=== PATIENT | male | born 1975 | race Caucasian/White ===

== ENCOUNTER 2021-11-20 00:32 | Emergency (ER) | payer SELFPAY ==
[~2021-11-20] VITALS: Ht 172.7 cm; Wt 92.7 kg
[2021-11-20] MEDS ORDERED: IBUPROFEN 600 MG TABLET PO ONE (01:00)
[2021-11-20] MEDS ORDERED: CEPHALEXIN MONOHYDRATE 500 MG CAPSULE PO ONE (01:00)
[2021-11-20 01:41] VITALS: BP 139/88
== END 2021-11-20 02:03 | disposition home or self-care (01) ==
LOC: EMS 00:34
DX: L03.116 Cellulitis of left lower limb (principal)
CPT/HCPCS: 99283

== ENCOUNTER 2022-03-08 00:57 | Inpatient (IN) | payer MEDICAID ==
[2022-03-08] VITALS (9 sets, daily range): BP systolic 98–110; BP diastolic 57–73
[~2022-03-08] VITALS: Ht 172.7 cm; Wt 79.0 kg
[2022-03-08] MEDS ORDERED: ACETAMINOPHEN 500 MG TABLET PO ONE (01:15)
[2022-03-08] MEDS ORDERED: SODIUM CHLORIDE 0.9% 1,000 ML IV ONE (01:15)
[2022-03-08 01:36] LABS: BASOPHILS % (AUTO) 0.4 % (0.0-2.0); HEMATOCRIT 44.8 % (41-53); HEMOGLOBIN 15.5 g/dL (13.5-17.5); LYMPHOCYTES # (AUTO) 2.4 K/uL (1.0-4.8); LYMPHOCYTES % (AUTO) 22.1 % (22.0-44.0); MEAN CORPUSCULAR HEMOGLOBIN 32.5 pg (26.0-34.0); MEAN CORPUSCULAR HGB CONC 34.6 G/dL (31.0-37.0); MEAN CORPUSCULAR VOLUME 94 fL (80-100); MONOCYTES # (AUTO) 0.6 K/uL (0.1-1.0); MONOCYTES % (AUTO) 5.8 % (2.0-9.0); NEUTROPHILS # (AUTO) 7.5 K/uL (1.8-7.7); NEUTROPHILS % (AUTO) 70.7 % (40.0-70.0); PLATELET COUNT (AUTO) 393 K/uL (150-450); RED BLOOD CELL COUNT(AUTO) 4.78 MIL/uL (4.50-5.90); RED CELL DISTRIBUTION WIDTH 13.3 % (11.5-14.5)
[2022-03-08 01:45] LABS: ANION GAP 9 mmol/L (8-16); CALCIUM, TOTAL 8.8 mg/dL (8.8-10.5); CARBON DIOXIDE 31 mmol/L (22-29); CHLORIDE 102 mmol/L (98-107); CREATININE 0.62 mg/dL (0.60-1.30); GLUCOSE,RANDOM 103 mg/dL (70-110); POTASSIUM 3.4 mmol/L (3.5-5.1); SODIUM SERUM 142 mmol/L (136-145); UREA NITROGEN, BLOOD 8 mg/dL (7-18)
[2022-03-08 01:47] LABS: GLOMERULAR FILTR. RATE CALC > 60 mL/min (>60)
[2022-03-08 01:50] LABS: PROTHROMBIN TIME 10.4 SEC (9.4-11.6)
[2022-03-08 01:50] LABS: ABG CARBOXYHEMOGLOBIN 3.6 % (0.0-1.5); ABG HCO3 24.3 mmol/L (22.0-26.0); ABG METHEMOGLOBIN 0.3 % (0.0-1.5); ABG OXYGEN CONTENT 20.5 mL/dL (15.0-23.0); ABG OXYGEN SATURATION 96.6 % (95.0-98.0); ABG OXYHEMOGLOBIN 92.8 % (94.0-100.0); ABG PCO2 42 mmHg (35-45); ABG PH 7.388 (7.35-7.450); ABG TOTAL HEMOGLOBIN 15.7 G/dL (12.0-18.0); PO2, ARTERIAL BG 81.7 mmHg (88.0-96.0); SOURCE, BLOOD GAS ARTERIAL; TEMPERATURE, FAHRENHEIT, BG 98.6 FAHREN (96.0-98.6)
[2022-03-08 01:51] LABS: SITE, BLOOD GAS RT RADIAL
[2022-03-08 02:01] LABS: B-TYPE NATRIURETIC PEPTIDE 13 pg/mL (0-100)
[2022-03-08 02:02] LABS: COVID AG,FIA SOURCE NASOPHARYNGEAL
[2022-03-08 02:05] LABS: ALANINE AMINOTRANSFERASE 46 U/L (12-78); ALBUMIN 3.5 g/dL (3.4-5.0); ALKALINE PHOSPHATASE 74 U/L (46-116); ASPARTATE AMINOTRANSFERASE 29 U/L (15-37); BILIRUBIN,TOTAL 0.2 mg/dL (0.1-1.0); CREATINE KINASE, TOTAL ONLY 94 U/L (39-308); TOTAL PROTEIN, SERUM 7.2 g/dL (6.4-8.2)
[2022-03-08 02:17] LABS: ACETONE,BLOOD NEGATIVE (NEGATIVE)
[2022-03-08 02:54] LABS: APPEARANCE,URINE CLEAR (CLEAR); BILIRUBIN,URINE NEGATIVE (NEGATIVE); GLUCOSE, URINE (UA) NEGATIVE (NEGATIVE); KETONES,URINE NEGATIVE (NEGATIVE); LEUKOCYTE ESTERASE ,URINE NEGATIVE (NEGATIVE); NITRATE,URINE NEGATIVE (NEGATIVE); OCCULT BLOOD,URINE NEGATIVE (NEGATIVE); PROTEIN,URINE NEGATIVE (NEGATIVE); SPECIFIC GRAVITIY, URINE 1.009 (1.003-1.030); UROBILINOGEN,URINE <=1.0 mg/dL (<=1.0)
[2022-03-08 03:00] LABS: AMPHET/METH SCREEN,URINE NEGATIVE (NEGATIVE); BARBITURATE SCREEN, URINE NEGATIVE (NEGATIVE); BENZODIAZEPINES SCREEN,URINE NEGATIVE (NEGATIVE); CANNABINOID SCREEN,URINE NEGATIVE (NEGATIVE); COCAINE SCREEN,URINE POSITIVE (NEGATIVE); METHADONE SCREEN, URINE NEGATIVE (NEGATIVE); OPIATE SCREEN,URINE NEGATIVE (NEGATIVE)
[2022-03-08 03:01] LABS: PHENCYCLIDINE SCREEN,URINE NEGATIVE (NEGATIVE)
[2022-03-08] MEDS ORDERED: ZOLPIDEM TARTRATE 10 MG TABLET PO PRN (04:00)
[2022-03-08] MEDS: LORazepam 2 MG TABLET PO PRN (04:26)
[2022-03-08] MEDS: OLANZapine 5 MG RAPDIS TABLET PO PRN (04:26)
[2022-03-08 10:27] LABS: GLUCOSE,POINT OF CARE 85 MG/DL (70-110)
[2022-03-08] MEDS ORDERED: TUBERCULIN, PURIFIED PROTEIN DERIVATIVE 5 TU/0.1 ML SYRINGE ID ONE (11:30)
[2022-03-08] MEDS ORDERED: PROMETHAZINE HCL 25 MG TABLET PO PRN (11:30)
[2022-03-08] MEDS ORDERED: ACETAMINOPHEN 325 MG TABLET PO PRN (11:30)
[2022-03-08] MEDS ORDERED: CloNIDine HCL 0.1 MG TABLET PO PRN (11:30)
[2022-03-08] MEDS ORDERED: MAG HYDROX/AL HYDROX/SIMETH ES 30 ML SUSPENSION UDCUP PO PRN ×2 (11:30)
[2022-03-08] MEDS ORDERED: LOPERAMIDE HCL 2 MG CAPSULE PO PRN (11:30)
[2022-03-08] MEDS ORDERED: HydrOXYzine PAMOATE 50 MG CAPSULE PO PRN (11:30)
[2022-03-08] MEDS ORDERED: MAGNESIUM HYDROXIDE SUSPENSION 30 ML UDCUP PO PRN (11:30)
[2022-03-08] MEDS ORDERED: GuaiFENesin/D-METHORPHAN [SUGAR-FREE] 200-20MG/10 ML SYRUP UDCUP PO PRN (11:30)
[2022-03-08] MEDS: CloNIDine HCL 0.1 MG TABLET PO SCH ×4 (12:00→21:59)
[2022-03-08] MEDS: OLANZapine 5 MG RAPDIS TABLET PO SCH ×3 (12:40→16:34)
[2022-03-08] MEDS: ACAMPROSATE CALCIUM 333 MG DR TABLET PO SCH ×3 (12:45→16:34)
[2022-03-08] MEDS: GABAPENTIN 100 MG CAPSULE PO SCH ×4 (12:47→21:59)
[2022-03-08] MEDS: POTASSIUM CHLORIDE 20 MEQ ER TABLET PO ONE ×3 (13:56→16:46)
[2022-03-08] MEDS: THIAMINE 100 MG TABLET PO SCH (16:34)
[2022-03-08] MEDS: MELATONIN 5 MG TABLET PO SCH (21:00)
[2022-03-09 06:03] VITALS: BP 120/80
[2022-03-09] MEDS: CloNIDine HCL 0.1 MG TABLET PO SCH ×4 (06:03→21:12)
[2022-03-09 07:32] VITALS: BP 115/67
[2022-03-09 08:15] LABS: HEMOGLOBIN A1C 5.6 % (3.8-5.6)
[2022-03-09] MEDS: ACAMPROSATE CALCIUM 333 MG DR TABLET PO SCH ×3 (08:28→15:51)
[2022-03-09 08:41] LABS: ANION GAP 8 mmol/L (8-16); CALCIUM, TOTAL 8.7 mg/dL (8.8-10.5); CARBON DIOXIDE 30 mmol/L (22-29); CHLORIDE 102 mmol/L (98-107); CHOL/HDL RATIO 2.7 (4.2-7.3); CHOLESTEROL 147 mg/dL (131-200); CREATININE 0.63 mg/dL (0.60-1.30); FREE T4 (FREE THYROXINE) 1.11 ng/dL (0.76-1.46); GLUCOSE,RANDOM 107 mg/dL (70-110); HDL CHOLESTEROL 54 mg/dL (40-60); LDL CHOL (CALC.) 70 mg/dL (0-130); POTASSIUM 4.2 mmol/L (3.5-5.1); SODIUM SERUM 140 mmol/L (136-145); THYROID STIMULATING HORMONE 0.05 uIU/mL (0.36-3.74); TRIGLYCERIDES 115 mg/dL (15-150); UREA NITROGEN, BLOOD 8 mg/dL (7-18)
[2022-03-09 08:44] LABS: GLOMERULAR FILTR. RATE CALC > 60 mL/min (>60)
[2022-03-09] MEDS: DULoxetine HCL 20 MG CAPSULE PO SCH (09:35)
[2022-03-09] MEDS: GABAPENTIN 100 MG CAPSULE PO SCH ×4 (09:35→20:22)
[2022-03-09] MEDS: FOLIC ACID 1 MG TABLET PO SCH (09:35)
[2022-03-09] MEDS: OMEGA-3/DHA/EPA/FISH OIL 1,000 MG CAPSULE PO SCH (09:35)
[2022-03-09] MEDS: OLANZapine 5 MG RAPDIS TABLET PO SCH ×3 (09:36→15:50)
[2022-03-09] MEDS: MULTIVITAMINS WITH MINERALS, THERAPEUTIC TABLET PO SCH (09:37)
[2022-03-09] MEDS: THIAMINE 100 MG TABLET PO SCH ×2 (09:37→15:50)
[2022-03-09 09:58] VITALS: BP 122/64
[2022-03-09] MEDS: NICOTINE 21 MG/24 HOUR PATCH TD SCH (12:10)
[2022-03-09] MEDS: OLANZapine 5 MG RAPDIS TABLET PO PRN (14:55)
[2022-03-09] MEDS: LORazepam 2 MG TABLET PO PRN ×2 (14:55→19:04)
[2022-03-09 16:27] VITALS: BP 118/83
[2022-03-09 16:51] LABS: GLUCOMETER DEV NAME(LOC) 3E.I 2; GLUCOSE,POINT OF CARE 177 MG/DL (70-110)
[2022-03-09] MEDS: DIVALPROEX SODIUM 500 MG ER TABLET PO SCH (20:22)
[2022-03-09] MEDS: MELATONIN 5 MG TABLET PO SCH (20:24)
[2022-03-10 06:31] VITALS: BP 121/76
[2022-03-10] MEDS: CloNIDine HCL 0.1 MG TABLET PO SCH ×4 (06:31→21:54)
[2022-03-10] MEDS: FOLIC ACID 1 MG TABLET PO SCH (09:22)
[2022-03-10] MEDS: MULTIVITAMINS WITH MINERALS, THERAPEUTIC TABLET PO SCH (09:22)
[2022-03-10] MEDS: GABAPENTIN 100 MG CAPSULE PO SCH ×3 (09:22→20:10)
[2022-03-10] MEDS: OMEGA-3/DHA/EPA/FISH OIL 1,000 MG CAPSULE PO SCH (09:22)
[2022-03-10] MEDS: OLANZapine 5 MG RAPDIS TABLET PO SCH ×3 (09:23→17:51)
[2022-03-10] MEDS: DULoxetine HCL 20 MG CAPSULE PO SCH (09:23)
[2022-03-10] MEDS: THIAMINE 100 MG TABLET PO SCH ×2 (09:23→17:51)
[2022-03-10] MEDS: NALTREXONE HCL 50 MG TABLET PO SCH (09:23)
[2022-03-10] MEDS: NICOTINE 21 MG/24 HOUR PATCH TD SCH (09:24)
[2022-03-10] MEDS: HydrOXYzine PAMOATE 50 MG CAPSULE PO PRN ×2 (09:32→14:13)
[2022-03-10] MEDS: LORazepam 2 MG TABLET PO PRN ×2 (09:32→14:14)
[2022-03-10] MEDS: IBUPROFEN 600 MG TABLET PO PRN ×2 (09:32→18:32)
[2022-03-10 09:42] VITALS: BP 125/84
[2022-03-10] MEDS ORDERED: INSULIN LISPRO 100 UNITS/ML SQ PRN (15:00)
[2022-03-10] MEDS ORDERED: DEXTROSE 50%-WATER 25 GM/50 ML SYRINGE IVP PRN (15:00)
[2022-03-10 16:05] VITALS: BP 123/76
[2022-03-10 16:36] LABS: GLUCOMETER DEV NAME(LOC) 3E.C; GLUCOSE,POINT OF CARE 98 MG/DL (70-110)
[2022-03-10] MEDS: DIVALPROEX SODIUM 500 MG ER TABLET PO SCH (20:10)
[2022-03-10] MEDS: MELATONIN 5 MG TABLET PO SCH (20:10)
[2022-03-10 21:52] VITALS: BP 121/81
[2022-03-11] MEDS: CloNIDine HCL 0.1 MG TABLET PO SCH ×4 (06:00→21:28)
[2022-03-11 08:45] VITALS: BP 115/75
[2022-03-11] MEDS: NALTREXONE HCL 50 MG TABLET PO SCH (09:09)
[2022-03-11] MEDS: GABAPENTIN 100 MG CAPSULE PO SCH ×3 (09:13→16:37)
[2022-03-11] MEDS: MULTIVITAMINS WITH MINERALS, THERAPEUTIC TABLET PO SCH (09:13)
[2022-03-11] MEDS: HydrOXYzine PAMOATE 50 MG CAPSULE PO PRN ×2 (09:13→20:23)
[2022-03-11] MEDS: DULoxetine HCL 20 MG CAPSULE PO SCH (09:13)
[2022-03-11] MEDS: IBUPROFEN 600 MG TABLET PO PRN (09:14)
[2022-03-11] MEDS: OLANZapine 5 MG RAPDIS TABLET PO SCH ×3 (09:14→16:38)
[2022-03-11] MEDS: LORazepam 2 MG TABLET PO PRN ×2 (09:14→16:39)
[2022-03-11] MEDS: OMEGA-3/DHA/EPA/FISH OIL 1,000 MG CAPSULE PO SCH (09:14)
[2022-03-11] MEDS: THIAMINE 100 MG TABLET PO SCH ×2 (09:14→16:37)
[2022-03-11] MEDS: FOLIC ACID 1 MG TABLET PO SCH (09:14)
[2022-03-11] MEDS: NICOTINE 21 MG/24 HOUR PATCH TD SCH (09:40)
[2022-03-11 16:16] VITALS: BP 141/82
[2022-03-11 16:50] LABS: GLUCOMETER DEV NAME(LOC) 3E.C; GLUCOSE,POINT OF CARE 221 MG/DL (70-110)
[2022-03-11] MEDS ORDERED: MELA5TAB40 PO (17:10)
[2022-03-11] MEDS ORDERED: NALT50TA PO (17:10)
[2022-03-11] MEDS ORDERED: DULO20CA71 PO (17:10)
[2022-03-11] MEDS ORDERED: GABA-1216 PO (17:10)
[2022-03-11] MEDS ORDERED: OMEG-135 PO (17:10)
[2022-03-11] MEDS ORDERED: OLAN5TAB94 PO (17:10)
[2022-03-11] MEDS ORDERED: DIVA-80 PO (17:10)
[2022-03-11] MEDS: DIVALPROEX SODIUM 500 MG ER TABLET PO SCH (20:22)
[2022-03-11] MEDS: GABAPENTIN 300 MG CAPSULE PO SCH (20:23)
[2022-03-11] MEDS: MELATONIN 5 MG TABLET PO SCH (20:23)
[2022-03-11] MEDS ORDERED: OLANZapine 10 MG RAPDIS TABLET PO SCH (21:00)
[2022-03-12 06:06] VITALS: BP 129/74
[2022-03-12 06:07] LABS: GLUCOMETER DEV NAME(LOC) 3E.C; GLUCOSE,POINT OF CARE 108 MG/DL (70-110)
[2022-03-12] MEDS: CloNIDine HCL 0.1 MG TABLET PO SCH ×2 (06:07→12:27)
[2022-03-12 08:23] VITALS: BP 115/77
[2022-03-12] MEDS: DULoxetine HCL 20 MG CAPSULE PO SCH (08:31)
[2022-03-12] MEDS: GABAPENTIN 300 MG CAPSULE PO SCH ×2 (08:31→12:27)
[2022-03-12] MEDS: NALTREXONE HCL 50 MG TABLET PO SCH (08:31)
[2022-03-12] MEDS: FOLIC ACID 1 MG TABLET PO SCH (08:31)
[2022-03-12] MEDS: THIAMINE 100 MG TABLET PO SCH (08:31)
[2022-03-12] MEDS: MULTIVITAMINS WITH MINERALS, THERAPEUTIC TABLET PO SCH (08:31)
[2022-03-12] MEDS: OMEGA-3/DHA/EPA/FISH OIL 1,000 MG CAPSULE PO SCH (08:31)
[2022-03-12] MEDS: NICOTINE 21 MG/24 HOUR PATCH TD SCH (08:32)
[2022-03-12] MEDS: OLANZapine 5 MG RAPDIS TABLET PO PRN (09:03)
[2022-03-12] MEDS: LORazepam 2 MG TABLET PO PRN (09:03)
== END 2022-03-12 13:10 | disposition home or self-care (01) | DRG 750 ==
LOC: EMS 00:58 → 3EI 06:28 → 3EC 03-09 18:20
PROVIDERS: ADMIT Psychiatry & Neurology Psychiatry; ATTEND Psychiatry & Neurology Psychiatry
DX: F25.9 Schizoaffective disorder, unspecified (principal); E11.51 Type 2 diabetes mellitus with diabetic peripheral angiopathy without gangrene; Z91.19 Patient's noncompliance with other medical treatment and regimen; E11.65 Type 2 diabetes mellitus with hyperglycemia; F14.10 Cocaine abuse, uncomplicated; F32.A Depression, unspecified; J44.9 Chronic obstructive pulmonary disease, unspecified; Z55.9 Problems related to education and literacy, unspecified; Z59.02 Unsheltered homelessness; Z63.9 Problem related to primary support group, unspecified; Z65.3 Problems related to other legal circumstances; Z87.891 Personal history of nicotine dependence; Z89.512 Acquired absence of left leg below knee
CPT/HCPCS: 36600; 71045; 80048; 80053; 80061; 80164; 81003; 82009; 82550; 82805; 82962; 83036; 83880; 84439; 84443; 84484; 85025; 85610; 85730; 86592; 93005; 99285; G0480; J7030; Q9967; 36415-L1; 36415-TC